=== PATIENT | male | born 2000 | race Caucasian/White ===

== ENCOUNTER 2021-01-22 04:12 | Emergency (ER) | payer OTHER ==
[2021-01-22 05:00] LABS: Absolute Lymphocytes (CBC) 2.4 K/uL (0.7-4.9); Basophils % 1.2 % (0-1.3); Hematocrit 43.5 % (39.6-49.0); Lymphocytes % 30.9 % (15.3-44.8); MPV 8.6 fL (7.6-11.3); RBC Red Blood Cell Count 4.97 M/uL (4.33-5.43)
[2021-01-22 05:26] LABS: BUN Blood Urea Nitrogen 9 mg/dL (7-18); Bicarbonate 26 mmol/L (21-32); Glucose Level 96 mg/dL (74-106); Potassium 3.3 mmol/L (3.5-5.1); Sodium Level 141 mmol/L (136-145)
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
[2021-01-22 06:51] VITALS: TEMP 98.1; O2SAT 100
[2021-01-22 06:53] VITALS: BP 118/86
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
== END 2021-01-22 06:43 | disposition home or self-care (01) ==
LOC: ER 04:12
DX: S76.011A Strain of muscle, fascia and tendon of right hip, initial encounter (principal); S66.911A Strain of unspecified muscle, fascia and tendon at wrist and hand level, right hand, initial encounter; V49.49XA Driver injured in collision with other motor vehicles in traffic accident, initial encounter
CPT/HCPCS: 85025; 80048; 36415; 70450; 72125; 71260; 74177; Q9967; 99284